=== PATIENT | female | born 1985 | race Two or more races ===

== ENCOUNTER → 2019-12-09 | Outpatient (CLI) | payer OTHER ==
[~2019-12-09] VITALS: Ht 165.1 cm; Wt 61.2 kg
== END | disposition home or self-care (01) ==
LOC: OFIC 805 11:30
PROVIDERS: ATTEND Otolaryngology
DX: K21.9 Gastro-esophageal reflux disease without esophagitis (principal); R06.02 Shortness of breath; M62.48 Contracture of muscle, other site